=== PATIENT | female | born 1995 | race Caucasian/White ===

== ENCOUNTER 2016-11-12 18:49 | Emergency (ER) | payer BC ==
[2016-11-12] MEDS ORDERED: 0.9 % SODIUM CHLORIDE 1,000 ML BAG IV ONE (19:17)
--- NOTE | 2016-11-12 19:17 | Emergency Department Record ---
History of Present Illness - General Chief Complaint: Abdominal Pain Stated Complaint: L SIDE AND MIDDLE ABD PAIN Time Seen by Provider: 11/12/16 19:09 Source: Patient Mode of Arrival: Ambulatory Limitations: No limitations - History of Present Illness Initial Comments: 21 yo female presents with left sided abdominal pain. She has had mild discomfort like a fullness since July when she had a miscarriage. She was diagnosed as in April. The last 5-6 days the left sided discomfort has increased. No history of abdominal surgery. She is on OCP's. He cycles resumed this month. The bleeding was heavy but typical duration. No dysuria. No back pain. Onset/Timin -: Days(s) Location: LLQ Radiation: Chest Migration to: Other Severity: Moderate Quality: Dull Consistency: Constant Improves With: Nothing Worsens With: Movement Associated Symptoms: Nausea - Related Data LMP Date: 11/09/16 Patient : No Home Medications Medication Instructions Recorded Confirmed Last Taken Buspirone HCl [Buspirone HCl] 15 mg PO DAILY 11/12/16 11/12/16 Unknown Trazodone HCl 100 mg PO ASDIR 11/12/16 11/12/16 Unknown Allergies Allergy/AdvReac Type Severity Reaction Status Date / Time No Known Drug Allergies Allergy Verified 11/12/16 19:01 Travel Screening - Travel/Exposure Within Last 30 Days Have you traveled within the last 30 days?: No Review of Systems Constitutional: Denies: Chills, Fever, Malaise, Weakness, Weight change Eyes: Denies: Eye discharge, Eye pain, Photophobia, Vision change ENT: Denies: Congestion, Throat pain Respiratory: Denies: Cough Cardiovascular: Denies: Chest pain, Palpitations, Syncope Endocrine: Denies: Fatigue Gastrointestinal: Reports: As per HPI, Abdominal pain, Nausea. Denies: Diarrhea , Hematemesis, Vomiting Genitourinary: Denies: Dysuria, Urgency Musculoskeletal: Denies: Arthralgia, Back pain, Joint swelling, Myalgia, Neck pain Skin: Denies: Bruising, Change in color, Rash Neurological: Denies: Headache Psychiatric: Denies: Anxiety Hematological/Lymphatic: Denies: Blood Clots, Easy bleeding, Easy bruising, Swollen glands Past Medical History - SOCIAL HISTORY Smoking Status: Light tobacco smoker (<10/day) Alcohol Use: Rare Drug Use: Rare Drug Use Detail:: Marijuana - RESPIRATORY Hx Respiratory Disorders: No - CARDIOVASCULAR Hx Cardio Disorders: No - NEURO Hx Neuro Disorders: No - GI Hx GI Disorders: No - Hx Genitourinary Disorders: No - ENDOCRINE Hx Endocrine Disorders: Yes Comment:: hypoglycemia - MUSCULOSKELETAL Hx Musculoskeletal Disorders: No - PSYCH Hx Psych Problems: Yes Hx Anxiety: Yes - HEMATOLOGY/ONCOLOGY Hx Hematology/Oncology Disorders: No Family Medical History Any Significant Family History?: Yes Hx Cancer: Brother/Sister, Grandparents Hx Heart Disease: Father Physical Exam - General General Appearance: Alert, Oriented x3, Cooperative, No acute distress Limitations: No limitations - Head Head exam: Atraumatic, Normal inspection - Eye Eye exam: Normal appearance, PERRL. negative: Conjunctival injection, Periorbital swelling - ENT ENT exam: Normal exam, Mucous membranes moist, Normal orophraynx Ear exam: Normal external inspection Nasal Exam: Normal inspection Mouth exam: Normal external inspection Teeth exam: Normal inspection Throat exam: Normal inspection - Neck Neck exam: Normal inspection, Full ROM. negative: Tenderness - Respiratory Respiratory exam: Normal lung sounds bilaterally. negative: Respiratory distress - Cardiovascular Cardiovascular Exam: Regular rate, Normal rhythm, Normal heart sounds - GI/Abdominal GI/Abdominal exam: Soft, Normal bowel sounds, Tenderness (mild tenderness LLQ, soft abdomen otherwise). negative: Distended, Hernia, Hypoactive bowel sounds, Rebound - Rectal Rectal exam: Deferred - Extremities Extremities exam: Normal inspection, Full ROM, Normal capillary refill. negative: Tenderness - Back Back exam: Reports: Normal inspection, Full ROM. Denies: Muscle spasm, Rash noted, Tenderness - Neurological Neurological exam: Alert, Normal gait, Oriented X3 - Psychiatric Psychiatric exam: Normal affect, Normal mood - Skin Skin exam: Dry, Intact, Normal color, Warm Course Vital Signs 11/12/16 18:57 Temperature 98.1 F Pulse Rate 79 Respiratory 18 Rate Blood Pressure 123/77 Pulse Ox 99 - Reevaluation(s) Reevaluation #1: The labs, UA and pelvic labs were reviewed and were negative The CT scan was negative for any acute process. The patient's pain is controlled at this time I recommended a pelvic US as well. I offered a transfer to a facility with US tonight. She states her pain is well controlled and prefers to return during the day if the pain returns She will not be able to tomorrow so no reservation with US made. She will return if the pain returns or when she has free time. 11/12/16 22:03 11/12/16 22:24 Medical Decision Making - Lab Data Result diagrams: 11/12/16 19:00 11/12/16 19:00 Disposition Disposition: Discharge Clinical Impression: Pelvic pain Disposition: Home, Self-Care Condition: (1) Good Instructions: Pelvic Pain in Women (ED) Additional Instructions: Return immediately if you have increase in your pain Return during the day (7am to 3pm) for evaluation for US if you have any remaining pain Motrin as needed for pain Forms: Patient Portal Access Time of Disposition: 22:06
[2016-11-12 19:25] LABS: BASO % 0.1 % (0-6); EOS % 1.3 % (0-6); GRAN % 64.3 % (47-80); HEMATOCRIT 40.7 % (35.0-47.0); HEMOGLOBIN 13.2 gm/dl (11.6-16.0); LYMPH % 28.3 % (16-45); MEAN CELL VOLUME 88.1 fl (81-97); MEAN CORPUSCULAR HEMOGLOBIN 28.6 pg (27-33); MEAN CORPUSCULAR HGB CONC 32.4 g/dl (32-36); MEAN PLATELET VOLUME 10.4 fl (7.4-10.4); PLATELET COUNT 278 K/uL (130-400); RED BLOOD COUNT 4.62 M/uL (3.80-5.40); RED CELL DISTRIBUTION WIDTH 13.3 % (11.5-14.5); WHITE BLOOD COUNT W/O DIFF 6.7 K/uL (4.2-12.2)
[2016-11-12 19:39] LABS: ALB/GLOB RATIO 1.6 (1.1-1.8); ALBUMIN 4.5 gm/dL (3.5-5.0); ALKALINE PHOSPHATASE 57 U/L (38-126); ALT/SGPT 17 U/L (9-52); ANION GAP 10.2 (7-16); AST/SGOT 20 U/L (14-36); BLOOD UREA NITROGEN 14 mg/dL (7-17); CARBON DIOXIDE 25.8 mmol/L (22-30); CREATININE 0.8 mg/dL (0.52-1.04); EST GLOMERULAR FILTRATION RATE > 60 ml/min; GLUCOSE,RANDOM 102 mg/dL (70-110); TOTAL PROTEIN 7.3 gm/dL (6.3-8.2)
[2016-11-12] MEDS ORDERED: KETOROLAC 30 MG/ML VIAL IVP ONE (19:56)
[2016-11-12 20:07] LABS: URINE APPEARANCE CLEAR; URINE BILIRUBIN NEGATIVE (NEGATIVE); URINE BLOOD NEGATIVE (NEGATIVE); URINE COLOR YELLOW; URINE GLUCOSE (UA) NEGATIVE (NEGATIVE); URINE KETONE NEGATIVE (NEGATIVE); URINE LEUKOCYTE ESTERASE NEGATIVE (NEGATIVE); URINE NITRITE NEGATIVE (NEGATIVE); URINE PROTEIN NEGATIVE (NEGATIVE)
[2016-11-12 20:13] LABS: HCG,QUALITATIVE URINE NEGATIVE (NEGATIVE)
[2016-11-12] MEDS ORDERED: HYDROCODONE/APAP 5/325MG TABLET PO ONE ×2 (21:53)
[2016-11-15 00:44] LABS: GC SPECIMEN TYPE Vaginal (())
== END 2016-11-12 22:27 | disposition home or self-care (01) ==
LOC: ER 18:49
DX: R10.2 Pelvic and perineal pain (principal); R11.0 Nausea; R10.32 Left lower quadrant pain
CPT/HCPCS: 99284 ×2; 96374; 85025; 80053; 81003; 81025; 74176; Q0111; J1885; 87210; J7030